=== PATIENT | female | born 1955 | race Caucasian/White ===

== ENCOUNTER → 2017-09-10 | Outpatient (CLI) | payer OTHER ==
--- NOTE | 2017-09-11 09:06 | RADIOLOGY IMAGING REPORT ---
FACILITY: [facility] PATIENT NAME: ALLY FERNANDEZ : [id number] MR: [id number] V: [id number] EXAM DATE: [id number] ORDERING PHYSICIAN: BRAD LEON TECHNOLOGIST: Carmencita Newby PROCEDURE:BILATERAL DIGITAL SCREENING MAMMOGRAM WITH CAD ASSISTED INTERPRETATION & 3D TOMOSYNTHESIS COMPARISON:Prior mammograms 08/29/16, 03/22/15, 02/22/14, 03/02/13, 03/02/12 INDICATIONS:SCREENING FINDINGS: Moderately heterogeneous fibroglandular tissue is seen throughout the breasts. The parenchymal pattern has remained stable allowing for difference in mammographic technique & patient positioning. There is no evidence of malignant appearing mass, malignant appearing calcifications or other secondary sign of malignancy in either breast. DIAGNOSTIC CATEGORY 1--NEGATIVE. RECOMMENDATIONS: ROUTINE MAMMOGRAM AND CLINICAL EVALUATION. IMPRESSION: BIRADS 1: Negative No significant abnormality is seen Dictated by: Portia Vazquez M.D. on 09/10/2017 at 16:29 Transcribed by: SIDNEY on 09/11/2017 at 8:50 Approved by: Portia Vazquez M.D. on 09/11/2017 at 9:05 [facility]
== END ==
LOC: MAMO 00:39
PROVIDERS: ATTEND Student in an Organized Health Care Education/Training Program
DX: Z12.31 Encounter for screening mammogram for malignant neoplasm of breast (principal)
CPT/HCPCS: 77063; 77067

== ENCOUNTER 2017-10-02 16:00 | Outpatient (RCR) | payer OTHER ==
--- NOTE | 2017-09-08 08:49 | PT INITIAL EVALUATION ---
MEDICAL DIAGNOSIS: L shoulder pain TREATMENT DIAGNOSIS: Same, L bicipital tendonitis, supraspinatus tendonitis, anterior capsule laxity DATE OF ONSET: 05/20/17 SUBJECTIVE: Mayte Pickens (Pam) presents to PT for L shoulder pain from an hyper horizontal abduction injury when her dog chased a rabbit while she was walking him in [place], May 20, 2017. Cortisone injection has reduced but not alleviated fully her L shoulder pain. This pain has limited her yoga training. 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 Pain location is L anterior shoulder and described as ache. Pain scale is 2 on a ten point pain scale. Pain is worse with L shoulder extension with IR, tucking in shirts and better with rest. 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 OBJECTIVE: Posture: L shoulder mildly elevated and protracted, glenoid anterior in the fossa. ROM: A/PROM L shoulder, in degrees: flexion 153/170 (pain), abduction 170/170 ( pain), ER 75/85 (pain),IR L1/60 (pain) hz. abd. 33/40, extension 65/70 (pain). R shoulder AROM grossly 5-8 degrees >R except flexion (equal). Strength: L supraspinatus 4+/5, pain, biceps 4/5, IR 5/5, infraspinatus 5-/5. Palpation: Painful at the biceps long head, transverse ligament and supraspinatus tendon and muscle belly. Special Tests: Increased anterior capsule play, but subluxation not 50%, no apprehension to dislocation. Inferior capsule tightness is present. Positive bicipital impingement test. Crank, scour negative. ASSESSMENT: Afsaneh Pickens presents with capsular injury, biceps and supraspinatus strain after a horizontal abduction injury in May,. She had less pain with IR movement after manual therapy and e-stim. 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 PLAN: Patient to be seen for Manual Therapy Strengthening/condition Ice/Heat Range of Motion Stretching Neuromuscular Re-ed Electrical Stim Home Exercise Program 2x/Week for 4 Weeks Thank you for this referral. If you have any questions, comments, or concerns about this report or plan, please contact me at . [facility]
--- NOTE | 2017-10-20 08:51 | PT PLAN OF CARE ---
Physician: Dr. 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 Posture: Even shoulders, glenoid centered in the fossa. ROM: A/PROM L shoulder WNL/WNL. Strength: L supraspinatus, infraspinatus, IR 5/5, no pain, biceps 5-/5, no pain. Palpation: Unremarkable. Special Tests: Negative bicipital impingement test. A/P: Afsaneh Pickens has improved ROM, muscle balancing, function. I'll DC PT to HEP. Thank you. PAOLO
== END 2017-10-02 18:00 | disposition home or self-care (01) ==
LOC: PT 16:00
PROVIDERS: ATTEND Family Medicine
DX: M25.512 Pain in left shoulder (principal); M65.812 Other synovitis and tenosynovitis, left shoulder; M25.312 Other instability, left shoulder; M75.22 Bicipital tendinitis, left shoulder
CPT/HCPCS: 97161

== ENCOUNTER 2017-12-18 09:00 | Outpatient (RCR) | payer OTHER ==
--- NOTE | 2017-11-10 11:57 | PT INITIAL EVALUATION ---
MEDICAL DIAGNOSIS: M25.512 Pain in L shoulder TREATMENT DIAGNOSIS: Same, L shoulder impingement DATE OF ONSET: 10/27/17 SUBJECTIVE: Mayte "Ladonna Pickens returns to PT for L shoulder impingement pain which re-flared after increased training for her [employer] training session on November 21, 2017 (core abdominals and yoga). Night time pain has returned, disrupting sleep. She stopped her PT HEP upon discharge 10/02/17. She initially started PT 09/08/17 for this pain. Injury occurred with a hyper-horizontal abduction injury May 20, 2017 when her dog pulled on the leash, going after a rabbit. In her initial evaluation of 09/08/17, I found L anterior glenohumeral capsular laxity, biceps and supraspinatus strain, reduced L shoulder ROM and muscle imbalance. Pain location is L anterior shoulder and described as ache. Pain scale is 2 on a ten point pain scale. Pain is worse with abduction, IR, yoga poses requiring shoulder loading (downward dog, cobra) , laying on L side and better with rest. 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 Afsaneh denies thyroid, DM or hormonal problems. 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 OBJECTIVE: Posture: Mild forward head, L shoulder protraction 2", scapula elevated, mild superior angle tipping. ROM: A/PROM L shoulder, in degrees: flexion 150/160 (pain), abduction 172/180 (painful arc), ER 70/75 (pain), IR L1/60 (pain). mild reverse scapulohumeral rhythm with abduction, flexion. Strength: Supraspinatus 5-/5, biceps 5-/5, rhomboids, IR 5/5, middle, lower trap , serratus anterior 4/5. Palpation: Painful L biceps long head, supraspinatus and infraspinatus tendons, tight pec. minor, pec. major, LS, UT. Special Tests: Tight posterior, lateral and inferior glenohumeral joint and inferior, superior scapulothoracic joints. ASSESSMENT: Mayte Pickens presents with tightening of her L shoulder complex, including soft tissue and joint mobility, muscle imbalance, pain with training , sleeping, impingement movements. She had less impingement zone pain with manual therapy and is started back on HEP. Short Term Goals/Patient's Goals: 3 weeks: Afsaneh performs her yoga, core abdominal training with L shoulder pain . 6 weeks: Afsaneh is pain free with L shoulder yoga, weight training and core abdominal training exercise, sleeps without L shoulder pain. PLAN: Patient to be seen for Manual Therapy Strengthening/condition Ice/Heat Range of Motion Stretching Electrical Stim Posture/Body mechanics Home Exercise Program 2x/Week for 6 Weeks Thank you for this referral. If you have any questions, comments, or concerns about this report or plan, please contact me at . [facility]
--- NOTE | 2017-12-28 10:54 | PT PLAN OF CARE ---
Physician: Dr. Mustapha Coughlin Patient is being seen: 2x/week Therapist: Becky Wright PT Medical Diagnosis: M25.512 Pain in L shoulder Treatment Diagnosis: Same, L shoulder impingement Date of Onset: 10/27/17 Date of Initial Evaluation: 11/10/17 Date patient was last seen: 12/18/17 Number of treatments: 8 Number of cancellations/No shows: 0 INTERVENTIONS: Manual Therapy, Rotator cuff and scapular Strengthening, Stretching, Range of Motion, Heat, Electrical Stim, Home Exercise Program GOALS/PATIENT'S GOAL: 3 weeks: Afsaneh performs her yoga, core abdominal training with L shoulder pain 4/ 10 (met). 6 weeks: Afsaneh is pain free with L shoulder yoga, weight training and core abdominal training exercise (met), sleeps without L shoulder pain (met). Patient Compliance: Excellent Prognosis: Excellent Reasons for discontinuing therapy: S: Afsaneh denies L shoulder pain with all exercise and ADL's and denies night time shoulder pain. Posture: Even scapulae. ROM: L shoulder A/PROM WNL/WNL all directions, no impingement pain. Strength: L shoulder 5/5. Palpation: Unremarkable L shoulder. Special Tests: Normal L shoulder joints mobility. A/P: Afsaneh Pickens improved ROM, joint mobility, muscle balanced her shoulder to alleviate shoulder pain with ADL's and exercise. I'll DC PT to HEP. Thank you. PAOLO
== END 2017-12-18 18:00 | disposition home or self-care (01) ==
LOC: PT 09:00
PROVIDERS: ATTEND Family Medicine
DX: M25.512 Pain in left shoulder (principal); M75.42 Impingement syndrome of left shoulder
CPT/HCPCS: 97161